=== PATIENT | male | born 1965 | race American Indian/Alaskan Native ===

== ENCOUNTER 2018-07-15 14:27 | Emergency (ER) | payer SELFPAY ==
[2018-07-15] MEDS ORDERED: NACL 0.9% 1000 ML 1,000 ML IV ONE ×2 (15:27→16:08)
[2018-07-15] MEDS ORDERED: TORADOL IV ONE (15:27)
--- NOTE | 2018-07-15 15:31 | Emergency Department Report ---
Aida Doc - Documentation Documentation: Patient is a 52-year-old [place] male with a past medical history of hypertension and diabetes who had several near syncopal episodes today. Patient states he woke up with a left-sided headache which is unusual for him. Patient states he then went outside to cut the lawn. Patient is on a riding lawnmower was not walking. Patient states he went inside and states he was sitting and felt as though he was about to pass out. Patient was experiencing tunnel vision and some loss of hearing at the time. Patient assumes his blood sugar was low and he drank some pankaj greyson and also had a son give him some food however these did not improve his symptoms. Patient currently states that he's still has a headache and still feels abnormal. Patient focused physical exam does have equal supervisor packing strength, and no facial droop is able to speak in full sentences. Patient with normal heart and lung exams. Patient will be moved to the main area be placed on a monitor laboratory studies will be done patient will be reevaluated.
--- NOTE | 2018-07-15 15:59 | Cat Scan Report ---
FINAL REPORT EXAM: CT HEAD/BRAIN WO CON HISTORY: near syncope TECHNIQUE: Noncontrast CT axial images of the brain. PRIORS: None. FINDINGS: No parenchymal mass, mass effect, hemorrhage, midline shift or hydrocephalus. No evidence of acute cortical infarct. No abnormal, extra-axial fluid or air collection. Osseous calvarium grossly intact. IMPRESSION: 1. No acute intracranial findings.
[2018-07-15 16:26] LABS: Basophils % (Auto) 0.1 % (0.0-1.8); Eosinophils % (Auto) 0.2 % (0.0-4.3); Hematocrit 44.3 % (35.5-45.6); Hemoglobin 15.1 gm/dl (11.8-15.2); Lymphocytes # (Auto) 1.9 K/mm3 (1.2-5.4); Lymphocytes % (Auto) 17.5 % (13.4-35.0); Mean Corpuscular HGB Conc 34 % (32-34); Mean Corpuscular Hemoglobin 28 pg (28-32); Mean Corpuscular Volume 83 fl (84-94); Monocytes # (Auto) 0.7 K/mm3 (0.0-0.8); Monocytes % (Auto) 6.2 % (0.0-7.3); Platelet Count 262 K/mm3 (140-440); Red Blood Count 5.33 M/mm3 (3.65-5.03); Red Cell Distribution Width 12.9 % (13.2-15.2)
[2018-07-15 16:52] LABS: BUN/Creatinine Ratio 16; Blood Urea Nitrogen 13 mg/dL (9-20); Calcium 9.3 mg/dL (8.4-10.2); Hemolysis Index 8
--- NOTE | 2018-07-15 17:43 | Emergency Department Report ---
ED General Adult HPI - General Chief complaint: Weakness Stated complaint: LIGHT HEADED/DIZZY Time Seen by Provider: 07/15/18 15:20 Source: patient Mode of arrival: Ambulatory Limitations: No Limitations - History of Present Illness Initial comments: Patient presents to the emergency department with a chief complaint of headache and cough that started about 2 hours ago. Patient states that a lot of care service came to sprays or today and about an hour later he cut the grass. Upon finishing the lawn work patient began to have some nausea, headache, sweating, and a sensation of wanting to pass out. Patient states that this lasted for about 2 hours and asked why he came to the emergency department. -: Sudden Location: head Severity scale (0 -10): 1 Improves with: none Worsens with: none Associated Symptoms: denies other symptoms Treatments Prior to Arrival: none - Related Data Previous Rx's Medication Instructions Recorded Last Taken Type Ondansetron [Zofran Odt] 4 mg PO Q8HR PRN #12 tab.rapdis 07/15/18 Unknown Rx Allergies Allergy/AdvReac Type Severity Reaction Status Date / Time No Known Allergies Allergy Unverified 07/15/18 14:42 ED Review of Systems ROS: Stated complaint: LIGHT HEADED/DIZZY Other details as noted in HPI Constitutional: denies: chills, fever Eyes: denies: eye pain, eye discharge, vision change ENT: denies: ear pain, throat pain Respiratory: cough. denies: shortness of breath, wheezing Cardiovascular: palpitations. denies: chest pain Endocrine: no symptoms reported Gastrointestinal: nausea. denies: abdominal pain, diarrhea Genitourinary: denies: urgency, dysuria Musculoskeletal: denies: back pain, joint swelling, arthralgia Skin: denies: rash, lesions Neurological: headache. denies: weakness, paresthesias Psychiatric: denies: anxiety, depression Hematological/Lymphatic: denies: easy bleeding, easy bruising ED Past Medical Hx - Social History Smoking Status: Never Smoker Substance Use Type: Alcohol, Marijuana - Medications Home Medications: Home Medications Medication Instructions Recorded Confirmed Last Taken Type Ondansetron [Zofran Odt] 4 mg PO Q8HR PRN #12 tab.rapdis 07/15/18 Unknown Rx ED Physical Exam - General Limitations: No Limitations General appearance: alert, in no apparent distress - Head Head exam: Present: atraumatic, normocephalic - Eye Eye exam: Present: normal appearance, PERRL, EOMI - ENT ENT exam: Present: mucous membranes moist - Neck Neck exam: Present: normal inspection - Respiratory Respiratory exam: Present: normal lung sounds bilaterally. Absent: respiratory distress, wheezes, rales, rhonchi - Cardiovascular Cardiovascular Exam: Present: regular rate, normal rhythm. Absent: systolic murmur, diastolic murmur, rubs, gallop - GI/Abdominal GI/Abdominal exam: Present: soft, normal bowel sounds. Absent: distended, tenderness - Rectal Rectal exam: Present: deferred - Extremities Exam Extremities exam: Present: normal inspection - Back Exam Back exam: Present: normal inspection - Neurological Exam Neurological exam: Present: alert, oriented X3, CN II-XII intact. Absent: motor sensory deficit - Psychiatric Psychiatric exam: Present: normal affect, normal mood - Skin Skin exam: Present: warm, dry, intact, normal color. Absent: rash ED Course Vital Signs 07/15/18 07/15/18 07/15/18 14:37 16:00 16:19 Temperature 98.4 F Pulse Rate 69 72 Respiratory 18 18 Rate Blood Pressure 140/85 O2 Sat by Pulse 97 Oximetry 07/15/18 07/15/18 17:00 18:00 Temperature Pulse Rate 79 73 Respiratory 14 12 Rate Blood Pressure 117/81 133/77 O2 Sat by Pulse 95 95 Oximetry ED Medical Decision Making - Lab Data Result diagrams: 07/15/18 15:56 07/15/18 15:56 Lab Results 07/15/18 07/15/18 07/15/18 Range/Units 14:36 15:56 15:56 WBC 11.0 (4.5-11.0) K/mm3 RBC 5.33 H (3.65-5.03) M/mm3 Hgb 15.1 (11.8-15.2) gm/dl Hct 44.3 (35.5-45.6) % MCV 83 L (84-94) fl MCH 28 (28-32) pg MCHC 34 (32-34) % RDW 12.9 L (13.2-15.2) % Plt Count 262 (140-440) K/mm3 Lymph % (Auto) 17.5 (13.4-35.0) % Payette % (Auto) 6.2 (0.0-7.3) % Eos % (Auto) 0.2 (0.0-4.3) % Baso % (Auto) 0.1 (0.0-1.8) % Lymph # 1.9 (1.2-5.4) K/mm3 Payette # 0.7 (0.0-0.8) K/mm3 Eos # 0.0 (0.0-0.4) K/mm3 Baso # 0.0 (0.0-0.1) K/mm3 Seg Neutrophils % 76.0 H (40.0-70.0) % Seg Neutrophils # 8.3 H (1.8-7.7) K/mm3 D-Dimer 147.40 (0-234) ng/mlDDU Sodium (137-145) mmol/L Potassium (3.6-5.0) mmol/L Chloride (98-107) mmol/L Carbon Dioxide (22-30) mmol/L Anion Gap mmol/L BUN (9-20) mg/dL Creatinine (0.8-1.5) mg/dL Estimated GFR ml/min BUN/Creatinine Ratio % Glucose (75-100) mg/dL POC Glucose 183 H (70-105) Calcium (8.4-10.2) mg/dL Troponin T (0.00-0.029) ng/mL 07/15/18 07/15/18 Range/Units 15:56 18:28 WBC (4.5-11.0) K/mm3 RBC (3.65-5.03) M/mm3 Hgb (11.8-15.2) gm/dl Hct (35.5-45.6) % MCV (84-94) fl MCH (28-32) pg MCHC (32-34) % RDW (13.2-15.2) % Plt Count (140-440) K/mm3 Lymph % (Auto) (13.4-35.0) % Payette % (Auto) (0.0-7.3) % Eos % (Auto) (0.0-4.3) % Baso % (Auto) (0.0-1.8) % Lymph # (1.2-5.4) K/mm3 Payette # (0.0-0.8) K/mm3 Eos # (0.0-0.4) K/mm3 Baso # (0.0-0.1) K/mm3 Seg Neutrophils % (40.0-70.0) % Seg Neutrophils # (1.8-7.7) K/mm3 D-Dimer (0-234) ng/mlDDU Sodium 138 (137-145) mmol/L Potassium 4.4 (3.6-5.0) mmol/L Chloride 98.6 (98-107) mmol/L Carbon Dioxide 26 (22-30) mmol/L Anion Gap 18 mmol/L BUN 13 (9-20) mg/dL Creatinine 0.8 (0.8-1.5) mg/dL Estimated GFR > 60 ml/min BUN/Creatinine Ratio 16 % Glucose 213 H (75-100) mg/dL POC Glucose (70-105) Calcium 9.3 (8.4-10.2) mg/dL Troponin T < 0.010 < 0.010 (0.00-0.029) ng/mL - EKG Data -: EKG Interpreted by N[place] EKG shows normal: sinus rhythm Rate: normal - EKG Data Interpretation: other (EKG shows a sinus rhythm of 65 bpm with less than one box ST elevation in lateral leads there is no UT depression) - Radiology Data Radiology results: pending, image reviewed Referring Physician: NANY LU Patient Name: IVET RENNER Date of : 1965 Sex: Male Report Date: 2018-07-15 Report Status: [place] [address] Cat Scan Report Signed Patient: IVET RENNER MR#: [id number] : 1965 Acct:[id number] Age/Sex: 52 / M ADM Date: 07/15/18 Loc: ED Attending Dr: Ordering Physician: NANY LU MD Date of Service: 07/15/18 Procedure(s) : CT head/brain wo con Accession Number(s): [id number] cc: NNAY LU MD FINAL REPORT EXAM: CT HEAD/BRAIN WO CON HISTORY: near syncope TECHNIQUE: Noncontrast CT axial images of the brain. PRIORS: None. FINDINGS: No parenchymal mass, mass effect, hemorrhage, midline shift or hydrocephalus. No evidence of acute cortical infarct. No abnormal, extra-axial fluid or air collection. Osseous calvarium grossly intact. IMPRESSION: 1. No acute intracranial findings. Transcribed By: [facility] Dictated By: JOSE J NEIL MD Electronically Authenticated By: JOSE J NEIL MD Signed Date/Time: 1557 DD/ 57 TD/TT: 07/15/181557 Chest x-ray preliminary read by me shows no acute process - Medical Decision Making Discussed results with the patient Critical care attestation.: If time is entered above; I have spent that time in minutes in the direct care of this critically ill patient, excluding procedure time. ED Disposition Clinical Impression: Near syncope, Chemical exposure Disposition: DC- TO HOME OR SELFCARE Is pt being admited?: No Does the pt Need Aspirin: No Condition: Stable Instructions: Near Syncope (ED) Additional Instructions: return if worse Prescriptions: Ondansetron [Zofran Odt] 4 mg PO Q8HR PRN #12 tab.rapdis PRN Reason: Nausea Referrals: PRIMARY CAREMD [Primary Care Provider] - 3-5 Days FRANK COMBS MD [Staff Physician] - 3-5 Days [facility] [Provider Group] - 3-5 Days Time of Disposition: 19:34
[2018-07-15 18:06] VITALS: BP 133/77
--- NOTE | 2018-07-15 20:16 | XRay Report ---
FINAL REPORT EXAM: XR CHEST 1V AP HISTORY: cough TECHNIQUE: Single, portable chest x-ray. PRIORS: None. FINDINGS: Cardiac and mediastinal silhouette within normal limits. Lungs are normally expanded. No significant vascular congestion. No focal consolidation or apparent pneumothorax. Bony thorax grossly unremarkable. IMPRESSION: 1. No acute consolidation.
== END 2018-07-15 19:50 | disposition home or self-care (01) ==
LOC: ED 14:27
DX: R55 Syncope and collapse (principal); R51 Headache; R11.0 Nausea; F12.10 Cannabis abuse, uncomplicated; Z77.098 Contact with and (suspected) exposure to other hazardous, chiefly nonmedicinal, chemicals
CPT/HCPCS: 36415; 70450; 71045; 80048; 82962; 84484; 85025; 85379; 93005; 93010; 96361; 96374; 99285; J1885; J7030